=== PATIENT | male | born 1965 | race Caucasian/White ===

== ENCOUNTER → 2023-11-18 17:37 | Outpatient (REF) | payer OTHER, SELFPAY | LOC: PAVMRI 17:37 | PROVIDERS: ATTENDING PHYSICIAN Internal Medicine; FAMILY PHYSICIAN Family Medicine | DX: M25.561 Pain in right knee (principal) | CPT/HCPCS: 73721 ==

== ENCOUNTER → 2023-11-22 14:11 | Outpatient (REF) | payer OTHER, SELFPAY | LOC: HWRAD 14:11 | PROVIDERS: ATTENDING PHYSICIAN Otolaryngology Facial Plastic Surgery; FAMILY PHYSICIAN Family Medicine | DX: J32.2 Chronic ethmoidal sinusitis (principal); J34.3 Hypertrophy of nasal turbinates | CPT/HCPCS: 70486 ==

== ENCOUNTER → 2024-02-10 09:33 | Outpatient (REF) | payer OTHER, SELFPAY | LOC: PAVMRI 09:33 | PROVIDERS: ATTENDING PHYSICIAN Physician Assistant Surgical; FAMILY PHYSICIAN Family Medicine | DX: M54.16 Radiculopathy, lumbar region (principal) | CPT/HCPCS: 72148 ==

== ENCOUNTER → 2024-12-02 16:06 | Outpatient (REF) | payer OTHER, SELFPAY | LOC: RCS 16:06 | PROVIDERS: ATTENDING PHYSICIAN Family Medicine; REFERRING PHYSICIAN Internal Medicine Cardiovascular Disease | DX: R07.9 Chest pain, unspecified (principal) | CPT/HCPCS: 93307; Q9957 ==

== ENCOUNTER → 2024-12-14 10:32 | Outpatient (REF) | payer OTHER, SELFPAY | LOC: RCS 10:32 | PROVIDERS: ATTENDING PHYSICIAN Family Medicine | DX: N07.9 Hereditary nephropathy, not elsewhere classified with unspecified morphologic lesions (principal) | CPT/HCPCS: 93017 ==

== ENCOUNTER 2025-02-20 16:00 | Emergency (ER) | payer OTHER, SELFPAY ==
[2025-02-20 16:02] VITALS: BP 159/96
--- NOTE | 2025-02-20 17:12 | ED.GENMED ---
History of Present Illness
General
Chief Complaint: Chest Pain
Source: patient
Exam Limitations: none
Time Seen by Provider: 02/20/25 16:43
Nursing documentation reviewed up to this point in time: agreed with
History of Present Illness
History of Present Illness:
59 yr old male with past medical history of prediabetes, renal cancer with nephrectomy, anxiety presents to the ER for evaluation. Patient reports around 2 PM he bent over to get something and developed pain in the middle of his chest that
radiated to bilateral shoulders and arms. He also felt tingling in both fingers. Symptoms lasted about 20 minutes resolved and then he felt little fluttering in his chest.
He does report he is under a lot of stress. He lost his son to cancer and had a [employer] benefit for him yesterday. He reports he did a lot of walking around yesterday for about 12 hours but had no symptoms of pain at that time. He
was sweaty at the time. He had no complaints of shortness of breath.
He has no cardiac history but did see concrete mixer loader truck mounted and had a stress test and echocardiogram November 2024 which was normal.
He does not smoke.
His mom had CHF no other heart cardiac issues.
He denies any recent illness fever chills
Past History
Past History
ED Past Medical History: Asthma, HTN, Hypercholesterolemia and Psychiatric (panic)
Social History
Tobacco: Non-smoker
Alcohol: None
Drug: None
Personal:
Living: with family
Employment: Employed
Review of Systems
Review of Systems
Allergies reviewed?: Yes
All Other Systems: ROS reviewed and negative except as documented in HPI and ROS
Constitutional: Reports no symptoms
EENT: Reports no symptoms
Respiratory: Reports no symptoms; Denies cough or trouble breathing
Cardiac: Reports chest pain; Denies diaphoresis, palpitations or syncope
ABD/GI: Reports no symptoms
Musculoskeletal: Reports no symptoms
Skin: Reports no symptoms
Neurological: Reports no symptoms
Psychiatric: Reports no symptoms
Phy Exam
General Physical Exam
General Presentation: no apparent distress
General age: appears stated age
General Skin: warm and dry
General Habitus: normal
General Mental: alert
General Hydration: appears well hydrated
Cardiovascular Exam
Cardiovascular Exam: regular rate/rhythm, no murmur and normal peripheral pulses
Pulmonary Exam
Pulmonary Exam: lungs clear, no respiratory distress and chest non tender
Neurological Exam
Neurological Exam: alert and oriented x3
Musculoskeletal Exam
Musculoskeletal Exam: full ROM
Skin Exam
Skin Exam: normal color and warm/dry
Psychiatric Exam
Psychiatric Exam: normal mood/affect
Scores
Heart Score for Chest Pain Patients
STEMI patient?: Not applicable
Course
Orders/Labs/Results
Orders:
Orders
02/20/25 16:01
Electrocardiogram (*1) Urgent
Reason for Study: Chest Pain
EKG- Treatment ONCE
02/20/25 16:08
Cardiac Monitoring- Treatment ONCE
IV Insert/Care/Rem.- Treatment PRN
O2 Therapy [RESP] Urgent
Titrate/Wean O2 to maintain O2 sat greater than (%): 90
Special Instructions: Maintain sats >/=90%
Pulse Ox/spot Check [RESP] Urgent
Quantity: 1
Special Instructions: ON ROOM AIR
02/20/25 16:38
CR Chest - 2 Views Urgent
Comment:
Reason For Exam: CP
02/20/25 17:44
Comprehensive Metabolic Panel Urgent
02/20/25 17:45
Complete Blood Count/With Diff Urgent
Troponin I Urgent
02/20/25 19:26
EKG- Treatment ONCE
02/20/25 19:44
0.9% Sodium Chloride 1000 ml [Nss] 1,000 ml IV BOLUS
02/20/25 20:27
Troponin I Urgent
02/20/25 20:30
Electrocardiogram (*1) Stat
Reason for Study: Other
Other Reason for Exam: chest pain
Abnormal Lab Results
02/20/25 02/20/25
17:44 17:45
MPV 11.3 H fL
(7.4-10.4)
Absolute Monos (auto) 0.7 H 10^3/uL
(0.1-0.6)
Chloride 114 H mmol/L
(98-107)
BUN 34 H mg/dl
(9-20)
Creatinine 1.6 H mg/dL
(0.7-1.3)
02/20/25 17:45
02/20/25 17:44
Vital Signs
Initial and Last Documented VS:
Initial Vital Signs
Temp Pulse Resp BP Pulse Ox
98.4 F 72 16 159/96 98
02/20/25 16:02 02/20/25 16:02 02/20/25 16:02 02/20/25 16:02 02/20/25 16:02
Last Documented Vital Signs
Temp Pulse Resp BP Pulse Ox
98.4 F 70 15 149/88 95
02/20/25 16:02 02/20/25 21:30 02/20/25 21:30 02/20/25 21:00 02/20/25 21:30
MDM/Problems Addressed
MDM/Problems Addressed:
As documented patient had discomfort in his chest shoulders radiating to arms fingers while bending over earlier this afternoon. He is presently asymptomatic. There are no acute findings on EKG and his first cardiac troponin is negative. He had a
normal stress and normal echo November 2024. He was out exerting himself all throughout the day yesterday [place] and had no symptoms. With today's episode he also had a little fluttering sensation. He however has been in
normal sinus rhythm with no ectopy or arrhythmias. Will continue to monitor for repeat troponin and repeat EKG however if all are negative will plan to discharge home with cardiology chest pain follow-up on hotline. He is well-appearing in no
acute distress asymptomatic.
Patient does have 1 kidney due to history of renal cell carcinoma. He does report his creatinine is minimally elevated normally however 1.6 is slightly elevated. He was given fluids here .
I did instruct patient importance of following up with family doctor for reevaluation of his labs function.
*Radiology
Radiology exam reviewed: radiology read reviewed
*Pulse Oximetry
Patient hypoxic: no
*EKG
Interpreted by ED Provider?: Yes
Heart Rate: 72
Rate: normal
Rhythm: sinus
Ischemia: no ischemia
*Critical Care Note
Total Time (30-74mins, 75-104mins- exclusive of procedures): Not Applicable
ED Attending Note
-
Portions of this chart may have been created with voice recognition software.� Occasional wrong word or��sound alike� substitutions may have occurred due to the inherent limitations of voice recognition software.
Discharge Plan
Departure
Patient Disposition: Home (Routine Discharge)
Date of Disposition: 02/20/25
Time of Disposition: 21:25
Patient with high blood pressure during this ER visit?: Yes
Condition: Fair
Covid-19: Not Applicable
Discharge Problem:
Chest pain
Instructions: Chest Pain CBC Follow Up, BLOOD PRESSURE
Prescriptions:
No Action
Atorvastatin
1 tab PO DAILY
venlafaxine [Effexor] 75 MG tablet
75 mg PO DAILY
famotidine 20 MG tablet
20 mg PO DAILY
lisinopril 40 MG tablet
40 mg PO DAILY
meclizine 25 MG tablet
25 mg PO PRN PRN (Reason: dizziness)
Referrals:
Lucius Hager MD [Family Provider, Family Practice]
Sharlene Bass MD [Active, Cardiology]
Activity Restrictions/Additional Instructions:
As discussed please follow-up with cardiology.
Your cardiac labs were unremarkable. No exertion until seen by cardiology. return if any worsening of symptoms. In addition your renal function was elevated today here in the ER you were hydrated. Please increase your water intake and follow-up
with a family doctor for repeat labs.
Interventions
Interventions:
*Risk Screen - Suicide Last Done: 02/20/25 17:50
*General Assessment Last Done: 02/20/25 17:50
*Neglect/Abuse Screening Last Done: 02/20/25 17:50
*ED- Fall Risk Assessment Last Done: 02/20/25 17:50
*ED COVID-19 Vaccine History Last Done: 02/20/25 17:50
*Nursing Disposition Last Done: 02/20/25 21:41
ED- Cardiac Assessment Last Done: 02/20/25 17:50
Discharge Date and Time
Discharge Date/Time: 02/20/25 21:42
Print Language: J[place]
[2025-02-20 17:45] VITALS: BP 137/91
[2025-02-20 17:47] VITALS: BMI 32.0
[2025-02-20 17:58] LABS: % Basophils 0.5 % (0-2); % Eosinophils 3.2 % (0-6); % Immature Granulocytes 0.3 % (0-0.5); % Lymphocytes 21.6 % (20.5-51.1); % Monocytes 8.9 % (1.7-9.3); % Neutrophils 65.5 % (42.2-75.2); Absolute Eosinophils 0.3 10^3/uL (0-0.7); Absolute Lymphocytes 1.7 10^3/uL (1.2-3.4); Absolute Monocytes 0.7 10^3/uL (0.1-0.6); Absolute Neutrophils 5.1 10^3/uL (1.4-6.5); Hematocrit 44.4 % (39.0-52.0); Hemoglobin 15.9 g/dL (13.0-18.0); Mean Corp Hgb Conc. 35.8 g/dL (33.0-37.0); Mean Corpuscular Hgb 30.5 pg (27.0-31.0); Mean Corpuscular Volume 85.2 fL (80.0-94.0); Mean Platelet Volume 11.3 fL (7.4-10.4); Nucleated Red Blood Cells % 0 % (-); Platelet Count 163 10^3/uL (130-400); Red Blood Cell Count 5.21 10^6/uL (4.70-6.10); Red Cell Dist. Width 12.8 % (11.5-14.5); White Blood Cell Count 7.8 10^3/uL (4.8-10.8)
[2025-02-20 18:00] VITALS: BP 154/94
[2025-02-20 18:05] LABS: ALT (SGPT) 25 U/L (0-50); AST (SGOT) 29 U/L (17-59); Albumin 4.4 g/dl (3.5-5.0); Alkaline Phosphatase 75 U/L (38-126); Blood Urea Nitrogen 34 mg/dl (9-20); Calcium 9.5 mg/dl (8.4-10.2); Carbon Dioxide 22 mmol/L (22-30); Chloride 114 mmol/L (98-107); Estimated Creatinine Clearance 52 ml/min; Glucose 85 mg/dl (70-99); Potassium 4.3 mmol/L (3.5-5.1); Sodium 144 mmol/L (135-145); Total Bilirubin 0.6 mg/dl (0.2-1.3); Total Protein 6.9 g/dl (6.3-8.2); eGFR 49.02
[2025-02-20 18:15] LABS: Troponin I < 0.012 ng/ml
[2025-02-20 19:00] VITALS: BP 145/91
[2025-02-20] MEDS: NSS 1000 IV (19:51)
[2025-02-20 20:00] VITALS: BP 147/87
[2025-02-20 20:56] LABS: Troponin I < 0.012 ng/ml
[2025-02-20 21:00] VITALS: BP 149/88
== END 2025-02-20 21:42 | disposition home or self-care (01) ==
LOC: EMR 16:00
PROVIDERS: Nurse Practitioner; Student in an Organized Health Care Education/Training Program; EMERGENCY PHYSICIAN Emergency Medicine; FAMILY PHYSICIAN Family Medicine
DX: R07.89 Other chest pain (principal); R73.03 Prediabetes; J45.909 Unspecified asthma, uncomplicated; I10 Essential (primary) hypertension; E78.00 Pure hypercholesterolemia, unspecified; Z82.49 Family history of ischemic heart disease and other diseases of the circulatory system; Z85.528 Personal history of other malignant neoplasm of kidney
CPT/HCPCS: 99283; 71046; 80053; 84484; 85025; 93005

== ENCOUNTER → 2025-07-09 07:44 | Outpatient (REF) | payer OTHER, SELFPAY | LOC: HWRCS 07:44 | PROVIDERS: ATTENDING PHYSICIAN Internal Medicine Cardiovascular Disease; FAMILY PHYSICIAN Family Medicine | DX: R07.9 Chest pain, unspecified (principal) | CPT/HCPCS: 78452; 93017; A9500 ==

== ENCOUNTER 2025-08-24 17:53 | Emergency (ER) | payer OTHER, SELFPAY ==
[2025-08-24 18:06] VITALS: BP 189/116
[2025-08-24 18:36] LABS: Hematocrit 46.1 % (39.0-52.0); Hemoglobin 16.4 g/dL (13.0-18.0); Mean Corp Hgb Conc. 35.6 g/dL (33.0-37.0); Mean Corpuscular Volume 86.7 fL (80.0-94.0); Nucleated Red Blood Cells % 0 % (-); Platelet Count 163 10^3/uL (130-400); Red Cell Dist. Width 11.9 % (11.5-14.5)
[2025-08-24 18:54] LABS: ALT (SGPT) 34 U/L (0-50); AST (SGOT) 29 U/L (17-59); Albumin 4.6 g/dl (3.5-5.0); Alkaline Phosphatase 68 U/L (38-126); Blood Urea Nitrogen 26 mg/dl (9-20); Calcium 10.1 mg/dl (8.4-10.2); Carbon Dioxide 28 mmol/L (22-30); Chloride 104 mmol/L (98-107); Glucose 86 mg/dl (70-99); Potassium 3.8 mmol/L (3.5-5.1); Sodium 138 mmol/L (135-145); Total Protein 7.7 g/dl (6.3-8.2); eGFR > 60.00
[2025-08-24 20:32] VITALS: BP 169/106
[2025-08-24 20:37] VITALS: BMI 33.8
[2025-08-24 21:00] VITALS: BP 180/108
[2025-08-24 22:02] VITALS: BP 165/98
[2025-08-24] MEDS: NSS 1000 IV (22:28)
[2025-08-24 23:00] VITALS: BP 169/104
[2025-08-25] MEDS: LOPRESSOR 5 MG IV (00:18)
[2025-08-25 00:19] VITALS: BP 165/91
[2025-08-25 00:40] VITALS: BP 167/91
[2025-08-25 01:00] VITALS: BP 168/94
--- NOTE | 2025-08-25 01:19 | ED.GENMED ---
History of Present Illness
General
Chief Complaint: Dizziness
Source: patient
Exam Limitations: none
Time Seen by Provider: 08/24/25 22:05
Nursing documentation reviewed up to this point in time: agreed with
History of Present Illness
History of Present Illness:
Note:
CHIEF COMPLAINT(S)
Vertigo episodes and elevated blood pressure.
HISTORY OF PRESENT ILLNESS
The patient is a 59-year-old male with a long-standing history of Menieres disease, diagnosed over a decade ago. Over the past five years, the patient reports an increase in the frequency of vertigo episodes, previously managed without much incident
but recently experiencing an increase in severity and frequency. He describes experiencing three episodes in one week as of May, which is uncommon for him. The episodes are described as unpredictable with no discernable triggers. This latest
episode occurred in the emergency department, described by the patient as feeling 'like getting hit by an NFL linebacker' and was severe enough to cause him to drop to his knees. The vertigo episode resolved upon presentation to the ER. The patient
admits to having 12 to 14 episodes in the last two to three months.
The patient also reports elevated blood pressure readings over the past two weeks, reaching as high as 191/125 after a stressful encounter at home. Blood pressure previously registered as 160/100 at home. He attributes part of this rise to increased
stress and weight gain following cessation of the medication Mounjaro due to gastrointestinal side effects. He has already restarted Doxazosin on his own accord to manage his hypertension and notes a concurrent weight gain of approximately 15 pounds
after familial diet therapy was halted.
PAST MEDICAL AND SURIGICAL HISTORY
History of kidney cancer, resulting in the current status of one kidney.
CHRONIC MEDICAL CONDITIONS SIGNIFICANTLY AFFECTING CARE
- Menieres disease
- Hypertension
- History of kidney cancer with only one kidney functional
- History of elevated blood pressure and obesity-related issues
SOCIAL DETERMINANTS AFFECTING HEALTH
Patient reports increased stress levels related to work responsibilities and family life. 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
MEDICATIONS
- Lisinopril 20 mg
- Metoprolol 50 mg
- Acetazolamide (formerly on hydrochlorothiazide)
- Doxazosin (recently restarted)
- Previously on Mounjaro (ceased due to gastrointestinal side effects)
REVIEW OF SYSTEMS
- Neurological: Episodes of vertigo without clear triggers, described as severe and sudden in onset.
- Cardiovascular: Elevated blood pressure noted, highest reading of 191/125 reported.
PHYSICAL EXAM
General: Alert, no acute distress.
Skin: Warm, dry.
Head: Normocephalic, atraumatic.
Neck: Supple, trachea midline.
Eye Ears, nose, mouth and throat: Oral mucosa moist.
Cardiovascular: Normal peripheral perfusion, No edema.
Respiratory: Respirations are non-labored.
Gastrointestinal: Abdomen nondistended.
Back: Normal range of motion, Normal alignment.
Musculoskeletal: Normal ROM, normal strength.
Neurological: Alert and oriented to person, place, time, and situation, No focal neurological deficit observed.
Psychiatric: Cooperative, appropriate mood & affect.
PROBLEM LIST
- Acute: Recurrent vertigo episodes; elevated blood pressure readings
- Chronic: Menieres disease, history of hypertension, history of kidney cancer
PLAN
- Complete a CT scan to evaluate the cause of vertigo and exclude posterior circulation stroke.
- Review blood work results and assess renal function prior to any contrast imaging due to the history of a single kidney.
- The patient is advised to follow up with Dr. Page regarding management of hypertension and medication adjustments.
DIFFERENTIAL DIAGNOSIS
The Differential Diagnosis includes, in no particular order, and is not limited to:
- Menieres disease exacerbation
- Hypertensive crisis
- Vestibular migraine
- Posterior circulation stroke
- Labyrinthitis
- Benign paroxysmal positional vertigo
- Transient ischemic attack
- Dehydration
- Anxiety-induced vertigo
- Medication side effects
Disposition:
SUMMARY OF ENCOUNTER
The patient, a 59-year-old male with a history of Menieres disease and hypertension, presented to the emergency department following a severe episode of vertigo that was described as sudden and without clear triggers. He experiences 12 to 14
episodes in the last two to three months. A recent vertigo episode was severe enough to cause him to drop to his knees. In addition, he reported elevated blood pressure readings at home. The CT angiography of the head and neck was negative for any
acute processes. Upon evaluation, the patient expressed a desire to be discharged home and stated that he is asymptomatic at present. The patient has lorazepam at home for future vertiginous episodes.
DISPOSITION
Patient wishes to be discharged home.
PLAN
- Discharge the patient home with follow-up care.
- Ensure patient has access to lorazepam for future vertigo episodes.
- Recommend follow-up appointments with neurology, ENT, and nephrology for ongoing management of Menieres disease and hypertension.
INDEPENDENT REVIEW OF LABS AND INTERPRETATION OF TESTS
My independent interpretation of the CT angiography of the head and neck is that it is negative for acute processes.
PATIENT EDUCATION AND COUNSELING
The patient was informed about the results of the CT angiography showing no acute processes. He was advised on the proper use of lorazepam for managing future vertiginous episodes and instructed to follow up with his specialists for continuous
management of his existing conditions.
FOLLOW-UP INSTRUCTIONS
The patient is advised to follow up with his neurologist, ENT, and computer technology trainer for continuous care and management of Menieres disease and hypertension.
MEDICATION RECONCILIATION
The patient has lorazepam at home for future vertiginous episodes.
MEDICAL DECISION MAKING
1. Number and Complexity of Problems Addressed:
Chronic conditions affecting care include Menieres disease, hypertension, and a history of kidney cancer. Differential diagnosis considered: Menieres disease exacerbation, hypertensive crisis, vestibular migraine, posterior circulation stroke,
labyrinthitis, benign paroxysmal positional vertigo, transient ischemic attack, dehydration, anxiety-induced vertigo, and medication side effects.
2. Data:
Category 1: The CT angiography of the head and neck was independently interpreted and found negative for acute processes.
Category 2: N/A
Category 3: N/A
3. Risk:
Consideration of Admission/Observation: Escalation of care including admission/observation was considered given the complexity and risk of the patients presenting complaint, exam findings, and/or their underlying comorbidities. However, ultimately I
feel the patient is safe for outpatient management with close follow up. Reasoning: Work-up reassuring, does not reveal any acute life/organ-threatening processes, patients symptoms well controlled upon reevaluation, reexamination is reassuring,
vitals are stable, patient agreeable with discharge, reliable for follow-up.
Care significantly affected by Social Determinants of Health: Increased stress levels related to work responsibilities and family life.
DIAGNOSIS
- Menieres disease exacerbation (H81.02)
- Hypertensive crisis (I16.0)
- History of kidney cancer, status post nephrectomy (Z85.528)
- Elevated blood pressure (R03.0)
Past History
Past History
ED Past Medical History: Asthma, HTN, Hypercholesterolemia and Psychiatric (panic)
Social History
Tobacco: Non-smoker
Alcohol: None
Drug: None
Personal:
Living: with family
Employment: Employed
Phy Exam
Physical Exam
Physical Exam:
.
Course
Orders/Labs/Results
Orders:
Orders
08/24/25 18:11
EKG [Electrocardiogram (*1)] Urgent
Reason for Study: Hypertension, Benign
08/24/25 18:12
EKG- Treatment ONCE
08/24/25 18:24
Complete Blood Count/With Diff Urgent
Comprehensive Metabolic Panel Urgent
08/24/25 22:23
CT Head & Neck Angio W/wo IV Urgent
Comment:
Reason For Exam: severe vertigo
0.9% Sodium Chloride 1000 ml [Nss] 1,000 ml IV BOLUS
08/25/25 00:02
Metoprolol [Lopressor] 5 mg IV NOW STA
Abnormal Lab Results
08/24/25
18:24
MPV 10.9 H fL
(7.4-10.4)
BUN 26 H mg/dl
(9-20)
08/24/25 18:24
08/24/25 18:24
Vital Signs
Initial and Last Documented VS:
Initial Vital Signs
Temp Pulse Resp BP Pulse Ox
98.4 F 83 18 189/116 96
08/24/25 18:06 08/24/25 18:06 08/24/25 18:06 08/24/25 18:06 08/24/25 18:06
Last Documented Vital Signs
Temp Pulse Resp BP Pulse Ox
98.4 F 71 15 168/94 94
08/24/25 18:06 08/25/25 01:15 08/25/25 01:15 08/25/25 01:00 08/25/25 01:15
*Radiology
Radiology exam reviewed: preliminary read by ED provider
*Pulse Oximetry
SaO2: 94
Oxygen Mode of Delivery: Room air
Patient hypoxic: no
*Critical Care Note
Total Time (30-74mins, 75-104mins- exclusive of procedures): Not Applicable
ED Attending Note
-
Portions of this chart may have been created with voice recognition software.� Occasional wrong word or��sound alike� substitutions may have occurred due to the inherent limitations of voice recognition software.
Discharge Plan
Departure
Patient Disposition: Home (Routine Discharge)
Date of Disposition: 08/25/25
Time of Disposition: 01:21
Patient with high blood pressure during this ER visit?: Yes
Condition: Good
Discharge Problem:
Vertigo, Meniere's disease
Instructions: Meniere disease, Vertigo (a Type of Dizziness) (DC), BLOOD PRESSURE
Prescriptions:
No Action
Atorvastatin
1 tab PO DAILY
venlafaxine [Effexor] 75 MG tablet
75 mg PO DAILY
famotidine 20 MG tablet
20 mg PO DAILY
lisinopril 40 MG tablet
40 mg PO DAILY
meclizine 25 MG tablet
25 mg PO PRN PRN (Reason: dizziness)
Referrals:
Lucius Hager MD [Family Provider, Family Practice]
Interventions
Interventions:
*Risk Screen - Suicide Last Done: 08/24/25 18:06
*General Assessment Last Done: 08/24/25 18:06
*Neglect/Abuse Screening Last Done: 08/24/25 18:06
*ED COVID-19 Vaccine History Last Done: 08/24/25 18:06
*ED Influenza Vaccine History Last Done: 08/24/25 18:06
[facility] Fall Risk Assessment Tool Last Done: 08/24/25 20:38
ED- Cardiac Assessment Last Done: 08/24/25 20:41
ED- Neurological Assessment Last Done: 08/24/25 20:41
ED Swallowing Screen Last Done: 08/24/25 22:41
Discharge Date and Time
Print Language: LITHU[place]
[2025-08-25 01:20] VITALS: BP 173/90
== END 2025-08-25 02:15 | disposition home or self-care (01) ==
LOC: EMR 17:53
PROVIDERS: Emergency Medicine; EMERGENCY PHYSICIAN Student in an Organized Health Care Education/Training Program; FAMILY PHYSICIAN Family Medicine
DX: R42 Dizziness and giddiness (principal); J45.909 Unspecified asthma, uncomplicated; I10 Essential (primary) hypertension; E78.00 Pure hypercholesterolemia, unspecified; E66.9 Obesity, unspecified; Z85.528 Personal history of other malignant neoplasm of kidney; Z90.5 Acquired absence of kidney
CPT/HCPCS: 99284; 96374; 96361; 70496; 70498; 80053; 85025; 93005; Q9967